=== PATIENT | female | born 1950 | race Caucasian/White ===

== ENCOUNTER 2021-09-08 10:26 | Outpatient (CLI) | payer OTHER | END 2021-09-08 10:39 | disposition home or self-care (01) | LOC: LAB 10:26 | PROVIDERS: ATTEND Obstetrics & Gynecology Gynecologic Oncology | DX: C54.1 Malignant neoplasm of endometrium (principal) ==

== ENCOUNTER 2021-09-09 07:28 | Outpatient (CLI) | payer OTHER | END 2021-09-09 13:24 | disposition home or self-care (01) | LOC: MRI 07:28 | PROVIDERS: ATTEND Obstetrics & Gynecology Gynecologic Oncology | DX: C54.1 Malignant neoplasm of endometrium (principal) ==

== ENCOUNTER 2021-09-15 07:40 | Outpatient (CLI) | payer OTHER | END 2021-09-15 08:59 | disposition home or self-care (01) | LOC: NUCLEAR 07:40 | PROVIDERS: ATTEND Obstetrics & Gynecology Gynecologic Oncology | DX: C54.1 Malignant neoplasm of endometrium (principal) ==

== ENCOUNTER 2021-09-16 08:22 | Outpatient (CLI) | payer OTHER | END 2021-09-16 08:23 | disposition home or self-care (01) | LOC: TOM 08:22 | PROVIDERS: ATTEND Internal Medicine Nephrology | DX: C54.1 Malignant neoplasm of endometrium (principal) | CPT/HCPCS: 72197 ==

== ENCOUNTER 2023-02-26 10:03 | Emergency (ER) | payer OTHER ==
[~2023-02-26] VITALS: Ht 154.9 cm; Wt 65.8 kg
[2023-02-26] MEDS ORDERED: NEURONTIN300 MG PO (12:50)
== END 2023-02-26 14:13 | disposition home or self-care (01) ==
LOC: ER 10:03
DX: M54.9 Dorsalgia, unspecified (principal)

== ENCOUNTER 2023-04-10 12:51 | Emergency (ER) | payer OTHER ==
[~2023-04-10] VITALS: Ht 154.9 cm; Wt 64.4 kg
[~2023-04-10 12:51] MED LIST: NEURONTIN300 MG PO
== END 2023-04-10 16:01 | disposition home or self-care (01) ==
LOC: ER 12:52
DX: M54.89 Other dorsalgia (principal)

== ENCOUNTER 2023-06-01 13:20 | Emergency (ER) | payer OTHER ==
[~2023-06-01] VITALS: Ht 154.9 cm; Wt 61.2 kg
[2023-06-01 15:41] LABS: URINE APPEARANCE Clear; URINE BILIRRUBIN Negative (NEGATIVE); URINE BLOOD Negative; URINE COLOR Yellow; URINE GLUCOSE Negative (NEGATIVE); URINE LEUKOCYTE Trace; URINE NITRATE Negative; URINE UROBILINOGEN 0.2 E.U./dl
[2023-06-01 15:42] LABS: URINE BACTERIA 13.8 uL (0.0-1933); URINE EPITHELIAL CELLS 2.1 uL (0.0-38.8); URINE WBC 30.7 uL (0.0-23.2)
[2023-06-01 15:45] LABS: URINE PROTEIN 300 (NEGATIVE); URINE RBC 0.5 uL (0.0-20.8)
[2023-06-01 15:58] LABS: CALCIUM 9.5 mg/dL (8.5-10.1); CREATININE SERUM 1.63 mg/dL (0.55-1.02); GFR 30.92; POTASSIUM 4.7 mEq/L (3.5-5.1)
[2023-06-01] MEDS ORDERED: NORFLEX100MG PO (16:40)
== END 2023-06-01 16:45 ==
LOC: ER 13:21
PROVIDERS: Nurse Practitioner Family
DX: M54.50 Low back pain, unspecified (principal); E11.9 Type 2 diabetes mellitus without complications; Z85.42 Personal history of malignant neoplasm of other parts of uterus; M19.90 Unspecified osteoarthritis, unspecified site; N28.9 Disorder of kidney and ureter, unspecified; I10 Essential (primary) hypertension; Z87.442 Personal history of urinary calculi

== ENCOUNTER 2023-06-13 18:23 | Emergency (ER) | payer OTHER ==
[~2023-06-13] VITALS: Ht 154.9 cm; Wt 61.2 kg
[~2023-06-13 18:23] MED LIST changes: +NORFLEX100MG PO
[2023-06-13] MEDS ORDERED: ATORVASTATIN CA20 MG PO (19:08)
[2023-06-13] MEDS ORDERED: AMLODIPINE-OLM1 EAC2 PO (19:08)
[2023-06-13] MEDS ORDERED: GLIMEPIRIDE4 M1 PO (19:08)
[2023-06-13] MEDS ORDERED: ALENDRONATE SOD70 MG PO (19:08)
[2023-06-13] MEDS ORDERED: ZESTRIL40 M1 PO (19:09)
== END 2023-06-13 20:18 | disposition home or self-care (01) ==
LOC: ER 18:24
DX: M54.50 Low back pain, unspecified (principal); M47.819 Spondylosis without myelopathy or radiculopathy, site unspecified

== ENCOUNTER 2023-07-16 09:09 | Emergency (ER) | payer OTHER ==
[~2023-07-16] VITALS: Ht 154.9 cm; Wt 59.4 kg
[~2023-07-16 09:09] MED LIST changes: +ALENDRONATE SOD70 MG PO; +AMLODIPINE-OLM1 EAC2 PO; +ATORVASTATIN CA20 MG PO; +GLIMEPIRIDE4 M1 PO; +ZESTRIL40 M1 PO
[2023-07-16 10:12] LABS: HEMATOCRIT 31.1 % (36.0-45.00); MEAN CELL VOLUME 82.2 fL (80.00-100.00); MEAN CORPUSCULAR HEMOGLOBIN 26.3 pg (27.00-32.0); PLATELET COUNT 417 K/uL (150-450); RED BLOOD COUNT 3.78 M/uL (4.00-6.00); RED CELL DISTRIBUTION WIDTH 16.4 % (11.5-14.5)
[2023-07-16 10:45] LABS: CALCIUM 8.9 mg/dL (8.5-10.1); CREATININE SERUM 1.9 mg/dL (0.55-1.02); GFR 25.91; POTASSIUM 4.55 mEq/L (3.5-5.1)
== END 2023-07-16 11:48 | disposition home or self-care (01) ==
LOC: ER 09:09
PROVIDERS: General Practice
DX: E11.649 Type 2 diabetes mellitus with hypoglycemia without coma (principal); Z79.84 Long term (current) use of oral hypoglycemic drugs; Z85.89 Personal history of malignant neoplasm of other organs and systems; I10 Essential (primary) hypertension

== ENCOUNTER 2023-07-23 08:33 | Outpatient (CLI) | payer OTHER | END 2023-07-23 08:35 | disposition home or self-care (01) | LOC: NUCLEAR 08:33 | PROVIDERS: ATTEND Obstetrics & Gynecology Gynecologic Oncology | DX: C53.0 Malignant neoplasm of endocervix (principal) ==